=== PATIENT | male | born 1990 ===

== ENCOUNTER 2018-07-27 18:14 | Emergency (ER) | payer SELFPAY ==
--- NOTE | 2018-07-27 20:38 | C.PDOC ---
History Of Present Illness 28 y/o male presents to the ER complaining of pain to low back. Patient states that the pain began after he bent down to hand picker an object. Patient reports that he has history of several episodes of back pain and he has taken anti- inflammatory medications. Denies having fever,chills,cough, CP,SOB, dysuria, hematuria, and weakness. Time Seen by Provider: 07/27/18 19:15 Chief Complaint (Nursing): Back Pain History Per: Patient History/Exam Limitations: no limitations Onset/Duration Of Symptoms: Days Current Symptoms Are (Timing): Still Present Severity: Moderate Past Medical History Reviewed: Historical Data, Nursing Documentation, Vital Signs Vital Signs: Last Vital Signs Temp 98.6 F 07/27/18 18:40 Pulse 63 07/27/18 18:40 Resp 17 07/27/18 18:40 BP 126/76 07/27/18 18:40 Pulse Ox 100 07/27/18 18:40 - Medical History PMH: No Chronic Diseases Surgical History: No Surg Hx Family History: States: No Known Family Hx - Social History Hx Alcohol Use: No Hx Substance Use: No - Immunization History Hx Tetanus Toxoid Vaccination: Yes Hx Influenza Vaccination: No Hx Pneumococcal Vaccination: No Review Of Systems Genitourinary: Negative for: Dysuria, Frequency, Incontinence, Hematuria Musculoskeletal: Positive for: Back Pain Physical Exam - Physical Exam Appears: Non-toxic, No Acute Distress Skin: Normal Color, Warm, Dry Head: Atraumatic, Normacephalic Eye(s): bilateral: Normal Inspection Neck: Supple Chest: Symmetrical Cardiovascular: Rhythm Regular Respiratory: Normal Breath Sounds, No Rales, No Rhonchi, No Wheezing Gastrointestinal/Abdominal: Normal Exam, Soft, No Tenderness, No Guarding, No Rebound Back: Vertebral Tenderness (mild vertebral tenderness), Other (mild lumbar tenderness) Neurological/Psych: Oriented x3, Normal Speech, Normal Motor, Normal Sensation Gait: Steady ED Course And Treatment O2 Sat by Pulse Oximetry: 100 (RA) Pulse Ox Interpretation: Normal Medical Decision Making Medical Decision Making: Plan: --Tramadol PO --Motrin PO Disposition Counseled Patient/Family Regarding: Diagnosis, Need For Followup, Rx Given - Disposition Referrals: [facility] [Outside] Disposition: HOME/ ROUTINE Disposition Time: 20:35 Condition: STABLE Additional Instructions: Use miriam alberto de soporte posterior cuando naya cualquier trabajo pesado. Prescriptions: Ibuprofen [Motrin Tab] 800 mg PO TID PRN #21 tab PRN Reason: Pain, Moderate (4-7) traMADol [Ultram] 50 mg PO TID PRN #15 tab PRN Reason: Pain, Severe (8-10) Instructions: Low Back Pain (DC) Forms: Gen Discharge Inst Panamanian, Woto (Panamanian) Print Language: MONGOLIAN - Clinical Impression Clinical Impression: Low back pain - PA / VULCANIZER / Resident Statement MD/DO has reviewed & agrees with the documentation as recorded. - Scribe Statement The provider has reviewed the documentation as recorded by the Leonibe Tamera Carson Provider Attestation All medical record entries made by the Leonibe were at my direction and personally dictated by me. I have reviewed the chart and agree that the record accurately reflects my personal performance of the history, physical exam, medical decision making, and the department course for this patient. I have also personally directed, reviewed, and agree with the discharge instructions and disposition.
[2018-07-27 20:46] VITALS: BP 120/70; PULSE 80; RESP 14; TEMP 98.5
[2018-07-27 21:06] VITALS: O2SAT 100
== END 2018-07-27 20:46 | disposition home or self-care (01) ==
LOC: C.ER 18:14
DX: M54.5 Low back pain (principal)